=== PATIENT | female | born 2000 | race Caucasian/White ===

== ENCOUNTER 2019-07-18 15:12 | Emergency (ER) | payer SELFPAY ==
[~2019-07-18] VITALS: Ht 167.6 cm; Wt 45.8 kg
[2019-07-18 15:15] VITALS: BP_SYST 108
--- NOTE | 2019-07-18 15:20 | NUR ---
Patient triaged and placed in waiting room. VSS and patient appears in no acute distress at this time. Accompanied by MOTHER, awaiting available bed, and MD notified of need for MSE.
--- NOTE | 2019-07-18 15:45 | NUR ---
PT STATES COLD AND COUGHING FOR ONE WEEK, NOW WITH PAIN TO LOWER ABDOMINAL AND SIDES FROM COUGHING. PT STATES SHE JUST FEELS HORRIBLE.
--- NOTE | 2019-07-18 16:03 | NUR ---
BROUGHT BACK TO BED #8 AND REPORT GIVEN TO MICHAELA
--- NOTE | 2019-07-18 16:11 | NUR ---
DR KAISER AT BEDSIDE FOR EVALUATION
--- NOTE | 2019-07-18 16:30 | NUR ---
Patient given written and verbal discharge instructions and verbalizes understanding. ER MD discussed with patient the results and treatment provided. Patient in stable condition. ID arm band removed. Rx of AUGMENTIN, NAPROSYN, TESSALON PERLES given. Patient educated on pain management and to follow up with PMD. Pain Scale 0/10. Opportunity for questions provided and answered. Medication side effect fact sheet provided.
== END 2019-07-18 16:30 | disposition home or self-care (01) ==
LOC: SED 15:12
DX: J40 Bronchitis, not specified as acute or chronic (principal); Z88.1 Allergy status to other antibiotic agents
CPT/HCPCS: 99283